=== PATIENT | male | born 1960 | race Caucasian/White ===

== ENCOUNTER 2021-11-05 14:15 | Emergency (ER) | payer MEDICARE, OTHER ==
[2021-11-05 15:10] LABS: #Basophils 0.1 10x3/uL (0.0-0.2); #Eosinphils 0.1 10x3/uL (0.0-0.5); #Monocytes 0.8 10x3/uL (0.0-1.1); #Neutrophils 10.1 10x3/uL (1.5-8.4); %Basophils 0.8 % (0.0-2.0); %Eosinophils 0.7 % (0.0-6.0); %Lymphocytes 8.9 % (18.0-47.0); %Monocytes 6.6 % (0.0-10.0); %Neutrophils 82.6 % (40.0-75.0); Hemoglobin 10.9 g/dL (13.5-17.5); Mean Corpuscular HGB CONC 30.4 g/dL (32.0-36.0); Mean Corpuscular Hemoglobin 31.1 pg (27.0-33.0); Mean Platelet Volume 10.3 fl (7.4-10.4); Platelet Count 248 10x3/uL (150-450); RBC Distribution Width 17.1 % (11.5-14.5); Red Blood Cell (RBC) Count 3.51 10x6/uL (4.32-5.72); White Blood Cell (WBC) Count 12.2 10x3/uL (3.5-10.5)
[2021-11-05 15:22] LABS: ALT (SGPT) 10 U/L (8-55); AST (SGOT) 18 U/L (5-34); Albumin 3.8 g/dL (3.4-4.8); Alkaline Phosphatase 160 U/L (40-110); Anion Gap 22 mmol/L (10-20); BUN (Urea Nitrogen) 28 mg/dL (8.4-25.7); Calc. Creatinine Clearance 0 mL/min (70-130); Calcium 9.8 mg/dL (7.8-10.44); Carbon Dioxide 28 mmol/L (23-31); Chloride 94 mmol/L (98-107); Globulin 3.9 g/dL (2.4-3.5); Glucose 152 mg/dL (80-115); Lipase 20 U/L (8-78); Potassium 4.2 mmol/L (3.5-5.1); Protein, Total 7.7 g/dL (5.8-8.1); Sodium 140 mmol/L (136-145)
[2021-11-05] MEDS ORDERED: Morphine 4 MG/ML VIAL ONE (16:11)
[2021-11-05] MEDS ORDERED: Ketamine 50 MG/ML (10ML VIAL) ONE (16:20)
== END 2021-11-05 18:15 | disposition home or self-care (01) ==
LOC: CSHERS 14:15
DX: K56.41 Fecal impaction (principal); I25.10 Atherosclerotic heart disease of native coronary artery without angina pectoris; E78.5 Hyperlipidemia, unspecified; I12.9 Hypertensive chronic kidney disease with stage 1 through stage 4 chronic kidney disease, or unspecified chronic kidney disease; E11.22 Type 2 diabetes mellitus with diabetic chronic kidney disease; N18.4 Chronic kidney disease, stage 4 (severe); F17.210 Nicotine dependence, cigarettes, uncomplicated
CPT/HCPCS: 74176; 80053; 83690; 85025; 96374; 96375; J2270

== ENCOUNTER 2021-11-10 08:59 | Outpatient (CLI) | payer MEDICARE, OTHER, MEDICAID | END 2021-11-10 09:00 | disposition home or self-care (01) | LOC: CSHWCC 08:59 | PROVIDERS: ATTEND Nurse Practitioner Family | DX: L89.159 Pressure ulcer of sacral region, unspecified stage (principal); T81.89XD Other complications of procedures, not elsewhere classified, subsequent encounter; T87.89 Other complications of amputation stump; L98.499 Non-pressure chronic ulcer of skin of other sites with unspecified severity; I70.268 Atherosclerosis of native arteries of extremities with gangrene, other extremity; S90.821D Blister (nonthermal), right foot, subsequent encounter; Z89.612 Acquired absence of left leg above knee | CPT/HCPCS: 97139; G0463; 99205 ==